=== PATIENT | male | born 1950 | race Caucasian/White ===

== ENCOUNTER 2016-07-04 10:26 | Observation (INO) | payer MEDICARE ==
[~2016-07-04] VITALS: Ht 170.2 cm; Wt 65.0 kg
[~2016-07-04 10:26] MED LIST: ASPI81TA45 PO; ATOR10TA PO; BUSP5 PO; COMBAER INH; LUTE20TA PO; VENTAER INH
[2016-07-04 10:28] VITALS: BP 165/77; PULSE 74; RESP 20; TEMP 98.5; O2SAT 96
[2016-07-04 11:01] VITALS: BP 168/76; PULSE 66; RESP 16; TEMP 98.6
--- NOTE | 2016-07-04 11:42 | PD ---
HPI Chief Complaint: GI Complaint Time Seen by Provider: 11:24 Travel History International Travel<30 days: No Contact w/Intl Traveler<30days: No Traveled to known affect area: No History of Present Illness HPI 66-year-old male presents with concern of rectal bleeding since his colonoscopy with polyp removal yesterday. He states Dr. Castaneda at [facility] did the procedure. He states he's had this before and blood that usually goes away on its own. He states that given it still happening over 12 hours or so later he elected to come in. He states he came here because it is closer. Quality is bright red. Severity is multiple episodes when he goes to the bathroom. He denies other concurrent complaints. PFSH Past Medical History Anemia: Yes Cancer: No Cardiovascular Problems: No COPD: Yes Diabetes: No Diminished Hearing: No Endocrine: No Genitourinary: No Hepatitis: No Hiatal Hernia: No Immune Disorder: No Musculoskeletal: No Neurologic: No Psychiatric: Yes (ANXIETY) Reproductive: No Respiratory: Yes (copd) Thyroid Disease: No Past Surgical History Abdominal Surgery: Yes (left inguinal hernia repair) AICD: No Cardiac Surgery: No Ear Surgery: No Endocrine Surgery: No Eye Surgery: No Genitourinary Surgery: No Gynecologic Surgery: No Joint Replacement: No Oral Surgery: No Pacemaker: No Thoracic Surgery: Yes (wedge resection of the right lung) Other Surgery: Yes (HISTORY OF SURGERY ON RIGHT LUNG) Social History Alcohol Use: Yes Tobacco Use: No Substance Use: No Allergies-Medications (Allergen,Severity, Reaction): Coded Allergies: Codeine (Verified Allergy, Intermediate, PARANOIA, 06/22/14) Reported Meds & Prescriptions Reported Meds & Active Scripts Active Ventolin Hfa (Albuterol Sulfate) 18 Gm Aero 2 Puff INH Q6HPRN * SHAKE WELL BEFORE USE * Reported Lutein 20 Mg Tab 5 Mg PO BID Aspirin 81 mg EC Lo-Dose (Aspirin) 81 Mg Tab 81 Mg PO DAILY Buspar 5 Mg Tab (Buspirone HCl) 5 Mg Tab 5 Mg PO BID Atorvastatin 10 mg (Atorvastatin Calcium) 10 Mg Tab 1 Tab PO DAILY Combivent (Albuterol/Ipratropium) 14.7 Gm Aer 2 Puff INH ONCE Review of Systems Except as stated in HPI: all other systems reviewed are Neg Physical Exam Narrative GENERAL: Well-nourished, well-developed patient. SKIN: Warm and dry. HEAD: Normocephalic and atraumatic. EYES: No injection or drainage. ENT: No nasal drainage noted. NECK: Supple, trachea midline. CARDIOVASCULAR: Regular rate and rhythm RESPIRATORY: No increased effort. No accessory muscle use. GASTROINTESTINAL: Abdomen soft, non-tender, nondistended. RECTAL EXAM: Performed with crimper assembler and after permission. No external hemorrhoid or fissure, bright red blood noted NEUROLOGICAL: Awake and alert. Motor and sensory grossly within normal limits. Normal speech. Data Data Last Documented VS Vital Signs Date Time Temp Pulse Resp B/P Pulse Ox O2 Delivery O2 Flow Rate FiO2 07/04/16 11:01 98.6 66 16 168/76 07/04/16 10:28 96 Room Air Orders Complete Blood Count With Diff (07/04/16 11:17) Comprehensive Metabolic Panel (07/04/16 11:17) Iv Access Insert/Monitor (07/04/16 11:17) Act Partial Throm Time (Ptt) (07/04/16 11:17) Prothrombin Time / Inr (Pt) (07/04/16 11:17) Type And Screen (07/04/16 11:17) Admit Order (Ed Use Only) (07/04/16 13:42) Labs Laboratory Tests Test 07/04/16 11:35 White Blood Count 8.9 TH/MM3 Red Blood Count 3.88 MIL/MM3 Hemoglobin 13.0 GM/DL Hematocrit 37.7 % Mean Corpuscular Volume 97.2 FL Mean Corpuscular Hemoglobin 33.4 PG Mean Corpuscular Hemoglobin 34.4 % Concent Red Cell Distribution Width 13.9 % Platelet Count 166 TH/MM3 Mean Platelet Volume 10.0 FL Neutrophils (%) (Auto) 71.4 % Lymphocytes (%) (Auto) 14.5 % Monocytes (%) (Auto) 11.0 % Eosinophils (%) (Auto) 2.7 % Basophils (%) (Auto) 0.4 % Neutrophils # (Auto) 6.3 TH/MM3 Lymphocytes # (Auto) 1.3 TH/MM3 Monocytes # (Auto) 1.0 TH/MM3 Eosinophils # (Auto) 0.2 TH/MM3 Basophils # (Auto) 0.0 TH/MM3 CBC Comment DIFF FINAL Differential Comment Prothrombin Time 11.7 SEC Prothromb Time International 1.1 RATIO Ratio Activated Partial 29.0 SEC Thromboplast Time Sodium Level 139 MEQ/L Potassium Level 4.2 MEQ/L Chloride Level 106 MEQ/L Carbon Dioxide Level 27.4 MEQ/L Anion Gap 6 MEQ/L Blood Urea Nitrogen 14 MG/DL Creatinine 0.88 MG/DL Estimat Glomerular Filtration 86 ML/MIN Rate Random Glucose 90 MG/DL Calcium Level 8.6 MG/DL Total Bilirubin 0.9 MG/DL Aspartate Amino Transf 16 U/L (AST/SGOT) Alanine Aminotransferase 23 U/L (ALT/SGPT) Alkaline Phosphatase 39 U/L Total Protein 6.9 GM/DL Albumin 3.7 GM/DL Blood Type A POSITIVE Antibody Screen NEGATIVE Blood Bank Comment MDM Medical Decision Making Medical Screen Exam Complete: Yes Emergency Medical Condition: Yes Medical Record Reviewed: Yes (past history confirmed) Interpretation(s) CBC & BMP Diagram 07/04/16 11:35 Differential Diagnosis Anemia, bleeding polyp, postop bleeding Narrative Course Will check blood work and discuss with his specialist patient updated and agrees to observation after discussion with dr em [facility] Point of Care Internal Pos. & Neg. Controls: Passed Fecal Specimen Occult Blood: Positive Physician Communication Physician Communication dr em requests observation, clear liquid diet, follow h and h dr pak agrees to admit Diagnosis Primary Impression: Rectal bleeding Admitting Information Admitting Physician Requests: Observation Norma Conway MD July 04, 2016 11:42
[2016-07-04 11:50] LABS: AUTOMATED NEUTROPHIL # 6.3 TH/MM3 (1.8-7.7); BASOPHIL % 0.4 % (0.0-2.0); EOSINOPHIL # 0.2 TH/MM3 (0-0.4); EOSINOPHIL % 2.7 % (0.0-4.0); HEMATOCRIT 37.7 % (39.0-51.0); HEMO FLAGS DIFF FINAL; LYMPH % 14.5 % (9.0-44.0); LYMPHOCYTE # 1.3 TH/MM3 (1.0-4.8); MEAN CELL VOLUME 97.2 FL (80.0-100.0); MEAN CORPUSCULAR HEMOGLOBIN 33.4 PG (27.0-34.0); MEAN CORPUSCULAR HGB CONC 34.4 % (32.0-36.0); NEUT % 71.4 % (16.0-70.0); PLATELET COUNT 166 TH/MM3 (150-450); RED BLOOD COUNT 3.88 MIL/MM3 (4.50-5.90); RED CELL DISTRIBUTION WIDTH 13.9 % (11.6-17.2); WHITE BLOOD COUNT 8.9 TH/MM3 (4.0-11.0)
[2016-07-04 12:00] LABS: INTERNATIONAL NORMALIZED RATIO 1.1 RATIO; PROTHROMBIN TIME - PATIENT 11.7 SEC (9.8-11.6)
[2016-07-04 12:11] LABS: ANION GAP 6 MEQ/L (5-15); AST (GOT) 16 U/L (15-37); BICARBONATE 27.4 MEQ/L (21.0-32.0); BLOOD UREA NITROGEN 14 MG/DL (7-18); CHLORIDE 106 MEQ/L (98-107); GLOMERULAR FILTRATION RATE 86 ML/MIN (>89); POTASSIUM 4.2 MEQ/L (3.5-5.1); SODIUM (NA) 139 MEQ/L (136-145)
[2016-07-04 12:14] LABS: ALKALINE PHOSPHATASE 39 U/L (45-117); ALT (GPT) 23 U/L (12-78); TOTAL BILIRUBIN ADULT 0.9 MG/DL (0.2-1.0)
[2016-07-04 14:27] VITALS: BP 177/72; PULSE 63; RESP 16; O2SAT 96
[2016-07-04] MEDS ORDERED: MORPHINE SULFATE 4 MG/ML INJ IV PRN (14:30)
[2016-07-04] MEDS ORDERED: MAGNESIUM HYDROXIDE SUSP 30 ML CUP PO PRN (14:30)
[2016-07-04] MEDS ORDERED: traMADol HCL 50 MG TAB PO PRN ×2 (14:30)
[2016-07-04] MEDS ORDERED: ONDANSETRON HCL 4 MG/2 ML VIAL IVP PRN (14:30)
[2016-07-04] MEDS ORDERED: NALOXONE HCL 0.4 MG/ML AMP IV PRN (14:30)
[2016-07-04] MEDS ORDERED: SODIUM CHLORIDE 0.9% FLUSH 10 ML FLUSH IV FLUSH PRN (14:30)
[2016-07-04] MEDS ORDERED: ACETAMINOPHEN 325 MG TAB PO PRN ×2 (14:30)
[2016-07-04] MEDS: SODIUM CHLOR 0.9% 1000 ML INJ 1,000 ML IV SCH (15:10)
[2016-07-04] MEDS ORDERED: LORazepam 2 MG TAB PO PRN (15:15)
[2016-07-04] MEDS ORDERED: LORazepam 2 MG/ML VIAL IV PUSH PRN ×4 (15:15)
[2016-07-04] MEDS ORDERED: HALOPERIDOL LACTATE 5 MG/ML AMP IM PRN (15:15)
[2016-07-04] MEDS ORDERED: LORazepam 1 MG TAB PO PRN (15:15)
[2016-07-04] MEDS ORDERED: FLUMAZENIL 0.5 MG/5 ML VIAL IV PUSH PRN (15:15)
--- NOTE | 2016-07-04 15:33 | HHI.HP ---
[facility] Service [facility] Primary Care Physician Jo Waterman MD Admission Diagnosis gi bleed Diagnoses: Chief Complaint: Rectal bleeding Travel History International Travel<30 Days: No Contact w/Intl Traveler <30 Da: No Traveled to Known Affected Are: No History of Present Illness Written by Yasmani Elder, acting as scribe for Dr. Burnham on 07/04/16 at 15:26. 66-year-old male with a past medical history of colon polyps, anxiety/depression , HLD, COPD who presented with rectal bleeding. The patient had a colonoscopy yesterday and had a polypectomy. He states that last night he began having bright rectal bleeding about every 3 or 4 hours. He states that the blood loss was about half of a cup. He states that today he woke up and had one bowel movement that was darker and had clots which prompted him to come to the ED. 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 Churchill was consulted and recommended monitoring overnight. The patient denies any dizziness, weakness, chest pain, shortness of breath. The patient has some abdominal cramping from not eating, but denies any abdominal pain. The patient takes aspirin because his PCP recommended it with hyperlipidemia, denies any heart disease. Review of Systems Except as stated in HPI: all other systems reviewed are Neg Past Family Social History Past Medical History Colonic polyps, benign in the past Anxiety/depression COPD Hyperlipidemia Past Surgical History Colonoscopy Left inguinal hernia repair Right lung surgery after spontaneous pneumothorax in his 20s Reported Medications Lutein 20 Mg Tab 5 Mg PO BID Aspirin 81 mg EC Lo-Dose (Aspirin) 81 Mg Tab 81 Mg PO DAILY Allergies: Coded Allergies: Codeine (Verified Allergy, Intermediate, PARANOIA, 06/22/14) Active Ordered Medications Current Medications Medications (Trade) Dose Ordered Sig/Corinna Route Start Time Stop Time Status Last Admin (NS 1000 ml Inj) 1,000 ml @ 60 mls/hr [id number] IV 07/04/16 15:00 07/04/16 15:10 (NS Flush) 2 ml UNSCH PRN IV FLUSH 07/04/16 14:30 (NS Flush) 2 ml BID IV FLUSH 07/04/16 21:00 (Tylenol) 650 mg Q4H PRN PO 07/04/16 14:30 (Zofran Inj) 4 mg Q6H PRN IVP 07/04/16 14:30 (Tylenol) 650 mg Q6H PRN PO 07/04/16 14:30 (Morphine Inj) 1 mg Q3H PRN IV 07/04/16 14:30 (Ultram) 50 mg Q4H PRN PO 07/04/16 14:30 (Ultram) 100 mg Q4H PRN PO 07/04/16 14:30 (Narcan Inj) 0.4 mg UNSCH PRN IV 07/04/16 14:30 (Kyara-Colace) 1 tab BID PO 07/04/16 21:00 (Milk Of Magnsaurabh Liq) 30 ml Q12H PRN PO 07/04/16 14:30 (Folate) 1 mg DAILY PO 07/05/16 09:00 07/10/16 08:59 (Vitamin B1) 100 mg DAILY PO 07/05/16 09:00 (Theragran M Tab) 1 tab DAILY PO 07/05/16 09:00 07/10/16 08:59 (Romazicon Inj) 0.2 mg Q1M PRN IV PUSH 07/04/16 15:15 (Ativan) 1 mg Q4H PRN PO 07/04/16 15:15 (Ativan Inj) 1 mg Q4H PRN IV PUSH 07/04/16 15:15 (Ativan) 2 mg Q2H PRN PO 07/04/16 15:15 (Ativan Inj) 2 mg Q2H PRN IV PUSH 07/04/16 15:15 (Ativan Inj) 2 mg Q1H PRN IV PUSH 07/04/16 15:15 (Ativan Inj) 2 mg Q15M PRN IV PUSH 07/04/16 15:15 (Haldol Inj) 2 mg Q15M PRN IM 07/04/16 15:15 Family History Father had emphysema Mother had colon cancer Social History Has 2 or 3 beers daily Denies any tobacco use Physical Exam Vital Signs Vital Signs Date Time Temp Pulse Resp B/P Pulse Ox O2 Delivery O2 Flow Rate FiO2 07/04/16 14:27 63 16 177/72 96 Room Air 07/04/16 11:01 98.6 66 16 168/76 07/04/16 10:28 98.5 74 20 165/77 96 Room Air Physical Exam GENERAL: Well-developed well-nourished. In no acute distress. SKIN: Warm and dry. No lesions noted. HEENT: Normocephalic. Pupils equal and round. Mucous membranes pink and moist. CARDIOVASCULAR: Distant heart sounds. Regular rate and rhythm. No murmur appreciated. RESPIRATORY: No accessory muscle use. Distant breath sounds. Clear to auscultation. Breath sounds equal bilaterally. GASTROINTESTINAL: Abdomen soft, non-tender, nondistended. Bowel sounds x4. MUSCULOSKELETAL: No obvious deformities. No clubbing or cyanosis. No edema. NEUROLOGICAL: Awake and alert. No focal neurological deficits. Moves upper and lower extremities spontaneously. Normal speech. PSYCHIATRIC: Appropriate mood and affect; insight and judgment normal. Laboratory Laboratory Tests Test 07/04/16 11:35 White Blood Count 8.9 Red Blood Count 3.88 Hemoglobin 13.0 Hematocrit 37.7 Mean Corpuscular Volume 97.2 Mean Corpuscular Hemoglobin 33.4 Mean Corpuscular Hemoglobin 34.4 Concent Red Cell Distribution Width 13.9 Platelet Count 166 Mean Platelet Volume 10.0 Neutrophils (%) (Auto) 71.4 Lymphocytes (%) (Auto) 14.5 Monocytes (%) (Auto) 11.0 Eosinophils (%) (Auto) 2.7 Basophils (%) (Auto) 0.4 Neutrophils # (Auto) 6.3 Lymphocytes # (Auto) 1.3 Monocytes # (Auto) 1.0 Eosinophils # (Auto) 0.2 Basophils # (Auto) 0.0 CBC Comment DIFF FINAL Differential Comment Prothrombin Time 11.7 Prothromb Time International 1.1 Ratio Activated Partial 29.0 Thromboplast Time Sodium Level 139 Potassium Level 4.2 Chloride Level 106 Carbon Dioxide Level 27.4 Anion Gap 6 Blood Urea Nitrogen 14 Creatinine 0.88 Estimat Glomerular Filtration 86 Rate Random Glucose 90 Calcium Level 8.6 Total Bilirubin 0.9 Aspartate Amino Transf 16 (AST/SGOT) Alanine Aminotransferase 23 (ALT/SGPT) Alkaline Phosphatase 39 Total Protein 6.9 Albumin 3.7 Blood Type A POSITIVE Antibody Screen NEGATIVE Blood Bank Comment Result Diagram: 07/04/16 1135 07/04/16 1135 Assessment and Plan Assessment and Plan 66-year-old male with a past medical history of colon polyps, anxiety/depression , HLD, COPD who presented with rectal bleeding Rectal bleeding s/p polypectomy: Hemoglobin 13. GI consulted and has evaluated the patient. Monitor H&H. Clear liquids. IVF. DC aspirin. Pain management with tramadol and IV morphine. Counseled regarding narcotics. Alcohol abuse: 23 beers daily. Denies problems with withdrawal in the past. CIWA protocol. Hypertension: No prior history. Clonidine as needed. Monitor. Reconcile and resume home medications as indicated, discussed with RN. DVT prophylaxis: SCDs. Discussed Condition With Patient, ED staff This note was transcribed by eleazar Elder. I, Dr. Irving Burnham personally performed the history, physical exam, and medical decision making; and confirmed the accuracy of the information in the transcribed note. Authenticated by Dr. Irving Burnham on 07/04/16 at 15:41. Yasmani Elder July 04, 2016 15:33 Irving Burnham MD July 04, 2016 15:41
[2016-07-04 15:40] VITALS: BP 179/75; PULSE 81; RESP 16; TEMP 98; O2SAT 95
[2016-07-04] MEDS ORDERED: UMEC1AER INH (15:44)
[2016-07-04] MEDS ORDERED: LUTE1TAB PO (15:44)
[2016-07-04] MEDS ORDERED: ASPI-110 PO (15:44)
[2016-07-04] MEDS ORDERED: ALBUAER3 INH (15:44)
[2016-07-04] MEDS ORDERED: BUSP5TAB PO (15:44)
[2016-07-04] MEDS ORDERED: cloNIDine HCL 0.1 MG TAB PO PRN (15:45)
[2016-07-04] MEDS ORDERED: ATOR10TA15 PO (15:45)
[2016-07-04] MEDS ORDERED: ALBUTEROL SULFATE 90 MCG/ACT HFA 8 GM INHALER INH PRN (16:45)
--- NOTE | 2016-07-04 16:45 | MB ---
cc: DARRYN CARABALLO LOUIS M. MD SAXOUR, JOANNE D. M.D. DATE OF CONSULTATION: 07/04/2016. REASON FOR CONSULTATION: Rectal bleeding. REFERRING PHYSICIAN: Dr. Paiz. HISTORY OF PRESENT ILLNESS: This is a 66-year-old male with a history of colon polyps who underwent colonoscopy yesterday at [facility] with Dr. Caraballo. He had endoscopic mucosal resection of an approximately 2.5 cm polyp in the proximal ascending colon without difficulty and the site was closed with four Endo clips. He had two smaller, less than 1 cm, polyps removed around the transverse and sigmoid colon. These were done with cautery. The patient states that he went home yesterday and had two ham sandwiches around 3 o'clock and then around 07:30 last night he passed some liquid stool that was bloody. He had five bowel movements in all from 07:30 until 08:30 this morning with the last one having some clots in it. He has had no abdominal pain or nausea. He has not moved his bowels since 8:30, which was about 5 hours ago. He stopped taking low-dose aspirin about 3 days ago and is on no other blood thinners. 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 He is . He did smoke for 40 years, but has quit. PAST MEDICAL HISTORY: His medical history is remarkable for: 1. Emphysema. 2. Hyperlipidemia. FAMILY HISTORY: His mother had colon polyps. MEDICATIONS: His medications include : 1. Atorvastatin 10 milligrams daily. 2. BuSpar 5 milligrams daily. 3. Lutein 10 milligrams daily. 4. ProAir two puffs every four to six hours as needed. 5. Pulmicort inhaler two puffs twice a day. ALLERGIES: HE HAS ALLERGY TO CODEINE. REVIEW OF SYSTEMS: He denies any lightheadedness, chest pain, shortness of breath, abdominal pain. PHYSICAL EXAMINATION:: GENERAL: Physical exam reveals a well-developed male in no acute distress. VITAL SIGNS: His blood pressure is 168/76, pulse 66 and regular, respirations of 16 nonlabored, temperature is 98.6. HEAD, EYES, EARS, NOSE, THROAT: Sclerae anicteric. LUNGS: Lungs are clear but with diminished breath sounds diffusely. No wheezing. HEART: Heart sounds are regular without murmur, gallop or rub. ABDOMEN: Abdomen is soft and nontender. Bowel sounds are normoactive and no significant distension. RECTAL: Rectal was done by Dr. Paiz and there was fresh blood on the examining finger. EXTREMITIES: No cyanosis or edema. NEUROLOGIC: He was alert and well-oriented with a pleasant affect and no gross motor deficits. LABORATORY FINDINGS: His hemoglobin is 13, hematocrit 37.7, platelet count 166,000. BUN is 14. Liver function tests are normal. Albumin 3.7. PT 11.7 and INR 1.1. IMAGING STUDIES: No imaging studies. IMPRESSION: 1. Rectal bleeding one day post polypectomy including EMR of a large polyp in the proximal ascending colon, which was closed with four Endo clips. The patient appears to be hemodynamically stable and has not had a bowel movement for the past 5 hours. PLAN: The case was discussed with Dr. Caraballo. I would keep the patient for observation overnight and on clear liquids. If no further significant bleeding, will advance diet tomorrow and likely discharge the patient home. If he does have increase in bleeding, will re-prep for colonoscopy and repeat colonoscopy for hemostasis. The patient understands and agrees with this plan. MD JJ Crockett/GLORIA /1:46 PM /4:39 PM ALEKS
[2016-07-04] MEDS ORDERED: ALBUTEROL SULFATE 90 MCG/ACT HFA 18 GM INHALER INH PRN (17:00)
[2016-07-04 19:27] LABS: HEMATOCRIT 37.1 % (39.0-51.0); REVIEW FLAG FINAL
[2016-07-04 19:57] VITALS: BP 159/71; PULSE 66; RESP 18; TEMP 99; O2SAT 96
[2016-07-04 20:53] VITALS: O2SAT 94
[2016-07-04] MEDS: DOCUSATE SODIUM 50 MG/SENNA 8.6 MG TAB PO SCH (21:00)
[2016-07-04] MEDS ORDERED: LUTEIN PO SCH (21:00)
[2016-07-04] MEDS: SODIUM CHLORIDE 0.9% FLUSH 10 ML FLUSH IV FLUSH SCH (21:08)
[2016-07-04] MEDS: busPIRone HCL 5 MG TAB PO SCH (21:08)
[2016-07-05 00:14] VITALS: BP 116/57; PULSE 66; RESP 18; TEMP 97.8; O2SAT 97
[2016-07-05 03:16] LABS: AUTOMATED NEUTROPHIL # 4.1 TH/MM3 (1.8-7.7); BASOPHIL % 0.6 % (0.0-2.0); EOSINOPHIL # 0.4 TH/MM3 (0-0.4); EOSINOPHIL % 5.4 % (0.0-4.0); HEMO FLAGS DIFF FINAL; LYMPH % 25.2 % (9.0-44.0); LYMPHOCYTE # 1.8 TH/MM3 (1.0-4.8); MEAN CELL VOLUME 98.2 FL (80.0-100.0); MEAN CORPUSCULAR HEMOGLOBIN 33.1 PG (27.0-34.0); MEAN CORPUSCULAR HGB CONC 33.7 % (32.0-36.0); NEUT % 55.8 % (16.0-70.0); PLATELET COUNT 151 TH/MM3 (150-450); RED BLOOD COUNT 3.57 MIL/MM3 (4.50-5.90); RED CELL DISTRIBUTION WIDTH 13.6 % (11.6-17.2); WHITE BLOOD COUNT 7.3 TH/MM3 (4.0-11.0)
[2016-07-05 03:32] LABS: BICARBONATE 27.7 MEQ/L (21.0-32.0); POTASSIUM 3.9 MEQ/L (3.5-5.1)
[2016-07-05 04:39] VITALS: BP 94/54; PULSE 66; RESP 18; TEMP 97.6; O2SAT 96
[2016-07-05] MEDS: SODIUM CHLOR 0.9% 1000 ML INJ 1,000 ML IV SCH (05:24)
[2016-07-05 08:01] VITALS: PULSE 58
[2016-07-05] MEDS: SODIUM CHLORIDE 0.9% FLUSH 10 ML FLUSH IV FLUSH SCH (08:21)
[2016-07-05] MEDS ORDERED: THIAMINE HCL 100 MG TAB PO SCH (09:00)
[2016-07-05] MEDS ORDERED: FOLIC ACID 1 MG TAB PO SCH (09:00)
[2016-07-05] MEDS ORDERED: UMECLIDINIUM 62.5 MCG/VILANTEROL 25 MCG INHALER INH SCH (09:00)
[2016-07-05] MEDS ORDERED: ATORVASTATIN 10 MG TAB PO SCH (09:00)
[2016-07-05] MEDS ORDERED: MULTIVITAMINS/MINERALS THERAPEUTIC TAB PO SCH (09:00)
[2016-07-05] MEDS: DOCUSATE SODIUM 50 MG/SENNA 8.6 MG TAB PO SCH (09:00)
[2016-07-05] MEDS: busPIRone HCL 5 MG TAB PO SCH (09:11)
[2016-07-05 09:14] VITALS: BP 128/60; PULSE 62; RESP 18; TEMP 98.8; O2SAT 98
--- NOTE | 2016-07-05 09:27 | HHI.GIFU ---
GI Follow-up Note Consult Follow-up Subjective: Patient laying in bed comfortably, no new complaints and states has not had a BM since yesterday but passing plenty of flatus. No abd pain or nausea. Hgb 11.7 Objective: PHYSICAL EXAMINATION: Vitals signs stable No fever CARDIAC: Regular rate and rhythm with no murmur gallop or rubs. ABDOMEN: Soft, nondistended, nontender EXTREMITIES: No clubbing, cyanosis, or edema. SKIN: warm and dry SHIPPING & RECEIVING LEAD: No focal deficits; alert and oriented times three. Available Data (labs, X- Rays, Procedues) : ASSESSMENT/PLAN: 1. Post-polypectomy bleed-appears stable with no signs of further bleeding. OK to discharge home and advance diet. Would avoid ASA and NSAIDS for 1 week . I explained to pt that ho could start bleeding again in which he case he should come back to ED. It was a pleasure seeing Jann Vitale. Thank you for this consult. Entered by: Jan Banks MD July 05, 2016 09:27
--- NOTE | 2016-07-05 09:38 | HHI.PR ---
Subjective Remarks Follow-up for post-polypectomy bleeding. The patient denies any further bleeding overnight. He is been tolerating clear liquids with no nausea or vomiting. He denies any abdominal pain. Cleared by GI for discharge. Patient asking how soon he can go home. Objective Vitals Vital Signs Date Time Temp Pulse Resp B/P Pulse Ox O2 Delivery O2 Flow Rate FiO2 07/05/16 09:14 98.8 62 18 128/60 98 07/05/16 08:01 58 07/05/16 04:39 97.6 66 18 94/54 96 07/05/16 00:14 97.8 66 18 116/57 97 07/04/16 20:53 94 21 07/04/16 19:57 99.0 66 18 159/71 96 07/04/16 15:40 98.0 81 16 179/75 95 07/04/16 14:27 63 16 177/72 96 Room Air 07/04/16 11:01 98.6 66 16 168/76 07/04/16 10:28 98.5 74 20 165/77 96 Room Air I/O 07/04/16 07/04/16 07/04/16 07/05/16 07/05/16 07/05/16 07:00 15:00 23:00 07:00 15:00 23:00 Intake Total 1000 ml 120 ml Output Total 1300 ml 500 ml Balance -300 ml -380 ml Intake Oral 600 ml 120 ml IV Total 400 ml Output Urine Total 1300 ml 500 ml # Voids 1 # Bowel Movements 0 Result Diagram: 07/05/16 0303 07/05/16 0303 Objective Remarks GENERAL: Well-developed well-nourished. In no acute distress. SKIN: Warm and dry. No lesions noted. HEENT: Normocephalic. Pupils equal and round. Mucous membranes pink and moist. CARDIOVASCULAR: Distant heart sounds. Regular rate and rhythm. No murmur appreciated. RESPIRATORY: No accessory muscle use. Distant breath sounds. Clear to auscultation. Breath sounds equal bilaterally. GASTROINTESTINAL: Abdomen soft, non-tender, nondistended. Bowel sounds x4. MUSCULOSKELETAL: No obvious deformities. No clubbing or cyanosis. No edema. NEUROLOGICAL: Awake and alert. No focal neurological deficits. Moves upper and lower extremities spontaneously. Normal speech. PSYCHIATRIC: Appropriate mood and affect; insight and judgment normal. A/P Assessment and Plan 66-year-old male with a past medical history of colon polyps, anxiety/depression , HLD, COPD who presented with rectal bleeding Rectal bleeding s/p polypectomy: Hemoglobin 13->11.8. Further bleeding. GI consulted and has cleared the patient for discharge. Diet as tolerated. Follow -up CBC. DC aspirin. Alcohol abuse: 23 beers daily. Denies problems with withdrawal in the past. CIWA protocol while admitted. Hypertension: No prior history. Improved spontaneously overnight. Other chronic medical conditions include COPD, anxiety, HLD: Stable at this time and will continue home medications as indicated. DVT prophylaxis: SCDs. Discharge Planning Discharge patient to home Condition on discharge: Improved Heart healthy Diet as tolerated Regular activity Rx written: CBC Follow-up with primary care physician and gastroenterology Yasmani Elder July 05, 2016 09:38
== END 2016-07-05 10:59 | disposition home or self-care (01) ==
LOC: NEPE 10:26 → NEDA 13:43 → NEPFCDU 15:34
PROVIDERS: ADMIT Internal Medicine; ATTEND Internal Medicine
DX: K91.840 Postprocedural hemorrhage of a digestive system organ or structure following a digestive system procedure (principal); D12.2 Benign neoplasm of ascending colon; I10 Essential (primary) hypertension; E78.5 Hyperlipidemia, unspecified; J44.9 Chronic obstructive pulmonary disease, unspecified; F41.9 Anxiety disorder, unspecified; F32.9 Major depressive disorder, single episode, unspecified; F10.10 Alcohol abuse, uncomplicated; Y83.8 Other surgical procedures as the cause of abnormal reaction of the patient, or of later complication, without mention of misadventure at the time of the procedure
CPT/HCPCS: 80048; 80053; 85014; 85018; 85025; 85610; 85730; 86850; 86900; 86901; 99285; G0378; J7030